=== PATIENT | male | born 1985 | race Caucasian/White ===

== ENCOUNTER 2019-02-20 06:41 | Emergency (ER) | payer OTHER ==
[2019-02-20] MEDS ORDERED: Ibuprofen 600 MG Tab PO ONE (07:12)
[2019-02-20] MEDS ORDERED: Orphenadrine 100 MG Tab.ER PO STA (07:12)
--- NOTE | 2019-02-20 07:18 | EDM.PDOC ---
ED HPI GENERAL MEDICAL PROBLEM - General Chief Complaint: Back Pain or Injury Stated Complaint: BACK PAIN Time Seen by Provider: 02/20/19 06:56 Source of Information: Reports: Patient, RN Notes Reviewed, Other (Friend) History Limitations: Reports: No Limitations - History of Present Illness INITIAL COMMENTS - FREE TEXT/NARRATIVE: The patient states that he got up to use the restroom around 01:00 this morning , and coughed when he went to flush the toilet, producing a sudden onset "pop" in his lower left back, with immediate pain in that area. He describes the pain is sharp in character. It does not radiate anywhere, and is only present if the patient moves. It abates if he remains still. Getting into and out of bed is extremely difficult. Flexing and twisting, particularly to the left, exacerbates the pain. No recent trauma to the area. No urinary symptoms or gross hematuria. No prior similar symptoms, and no prior history of back problems. The patient states that he took 400 mg of ibuprofen around 03:00, without significant relief. The patient does not have a PCP. Treatments CLOSING AGENT: Reports: NSAIDS Left Lower Back Pain Score (Numeric/FACES): 9 - Related Data Allergies Allergy/AdvReac Type Severity Reaction Status Date / Time No Known Allergies Allergy Verified 02/20/19 06:51 Home Meds: Home Meds Orphenadrine [Norflex] 1 tab PO Q12H PRN #20 tab.er 02/20/19 [Rx] Past Medical History - Past Surgical History HEENT Surgical History: Reports: Oral Surgery (wisdom teeth extraction) Social & Family History - Tobacco Use Smoking Status *Q: Current Every Day Smoker Years of Tobacco use: 16 Packs/Tins Daily: 0.5 Packs/Tins Daily Comment: Down from 1 ppd - Caffeine Use Caffeine Use: Reports: Energy Drinks - Alcohol Use Alcohol Use History: Yes Alcohol Use Frequency: Socially - Recreational Drug Use Recreational Drug Use: No - Living Situation & Occupation Living situation: Reports: Single, Alone Occupation: Employed ([employer]) ED ROS GENERAL - Review of Systems Review Of Systems: ROS reveals no pertinent complaints other than HPI. ED EXAM,LOWER BACK PAIN/INJURY - Physical Exam Exam: See Below Exam Limited By: No Limitations General Appearance: Alert, WD/WN, Mild Distress (Appears uncomfortable. Found standing in the exam room.) Eye Exam: Bilateral Eye: EOMI, Normal Inspection Ears: Normal External Exam, Hearing Grossly Normal Nose: Normal Inspection Throat/Mouth: Normal Inspection, Normal Lips, Normal Voice, No Airway Compromise Head: Atraumatic, Normocephalic Neck: Normal Inspection, Full Range of Motion Respiratory/Chest: No Respiratory Distress, Lungs Clear, Normal Breath Sounds, No Accessory Muscle Use Cardiovascular: Normal Peripheral Pulses, Regular Rate, Rhythm, No Edema, No Gallop, No JVD, No Murmur, No Rub GI/Abdominal: Normal Bowel Sounds, Soft, Non-Tender, No Organomegaly, No Distention, No Abnormal Bruit, No Mass (Male) Exam: Deferred Rectal (Males) Exam: Deferred Back Exam: Other (No visible abnormality to the patient's back, such as swelling , erythema, ecchymosis, or abrasion. No tenderness to palpation along the entire thoracic and lumbar vertebral spinous processes. The patient has reproducible tenderness to palpation to his left lumbar paraspinous muscles, but none on the right. The patient is able to flex to approximately 30, and extend to about 5, limited by back pain. The patient is able to tilt bilaterally to only a few degrees, limited by back pain. The patient is able to twist to approximately 5 bilaterally, limited by back pain. Unilateral knee bend is abnormal on the left, but normal on the right. Straight leg raise is symptom-free to about 80, bilaterally, limited only by lower back pain, without radiation down either lower extremity.) Extremities: Normal Inspection, Normal Range of Motion, No Pedal Edema, Normal Capillary Refill Neurological: Alert, No Motor/Sensory Deficits, Oriented x 3 Psychiatric: Normal Affect Skin Exam: Warm, Dry, Intact, Normal Color, No Rash Course - Vital Signs Last Recorded V/S: Last Vital Signs Temp 37.1 C 02/20/19 06:48 Pulse 105 H 02/20/19 06:48 Resp 20 02/20/19 06:48 BP 140/94 H 02/20/19 06:48 Pulse Ox 97 02/20/19 06:48 - Orders/Labs/Meds Meds: Medications Discontinued Medications Generic Name Dose Route Start Last Admin Trade Name Freq PRN Reason Stop Dose Admin Ibuprofen 600 mg 02/20/19 07:12 02/20/19 07:33 Motrin PO 02/20/19 07:13 600 mg ONETIME ONE Administration Orphenadrine Citrate 100 mg 02/20/19 07:12 02/20/19 07:33 Norflex PO 02/20/19 07:13 100 mg ONETIME STA Administration - Re-Assessments/Exams Free Text/Narrative Re-Assessment/Exam: 02/20/19 07:13 The patient's history and physical examination are consistent with the patient' s left back pain being due to a muscle spasm only. His history and physical examination are not consistent with a ureterolith. He has no findings that are concerning for herniated intervertebral disc. Steroids, therefore, are not indicated. I am recommending that the patient continue to take ibuprofen at an appropriate dose, and I will start him on Norflex. I explained that I would like him to stay active, and I will write a note for work, and refer him to the clinic, should his symptoms not improve in the next few days. The patient asked about chiropractic; evidence does in fact show that chiropractic may be of benefit for this particular type of low back pain due to a muscle spasm, not due to a herniated intervertebral disc, therefore I have to recommend that if the patient wants to go to a chiropractor, that that is okay. Departure - Departure Time of Disposition: 07:15 Disposition: Home, Self-Care 01 Condition: Good Clinical Impression: Spasm of back muscles - Discharge Information *PRESCRIPTION DRUG MONITORING PROGRAM REVIEWED*: Not Applicable *COPY OF PRESCRIPTION DRUG MONITORING REPORT IN PATIENT NERY: Not Applicable Prescriptions: Orphenadrine [Norflex] 1 tab PO Q12H PRN #20 tab.er PRN Reason: Muscle Spasm Instructions: Muscle Cramps and Spasms, [id number] Referrals: Yanet Brown PA [Physician Micro Computer Specialist] - Forms: ED Department Discharge, ED Return to Work/School Form Additional Instructions: You were seen in the emergency room for sudden onset lower left back pain. Based on your history and physical examination, your back pain is due to a muscle spasm, not a herniated intervertebral disc. Take [id number] ibuprofen, 2-3 tablets (400-600 mg) every 8 hours, with food, [id number], until your back is feeling better. You have been started on the muscle relaxant Norflex. A prescription for Norflex has [facility], located in the [facility] across the [address] from the hospital. Take one tablet of Norflex every 12 hours, starting this evening, 02/24/2019, as prescribed. As discussed, it is very important that you stay active. Swimming is best, but walking is good, as well. A note for work, limiting your activity, has been provided, through Saturday, 07/2019, however, if you are not feeling ready for full duty by 02/22/2019 , please follow-up with Yanet Brown or one of the other providers in the clinic, on 02/23/2019, for an extension of a work note. As discussed, for back pain due to to a muscle spasm, chiropractic has been shown to be of benefit. If any other problems, please do not hesitate to return to the ER.
== END 2019-02-20 07:35 | disposition home or self-care (01) ==
LOC: JD.ED 06:41
DX: M62.830 Muscle spasm of back (principal); M54.5 Low back pain; F17.210 Nicotine dependence, cigarettes, uncomplicated
CPT/HCPCS: 99283; A9270

== ENCOUNTER 2020-07-20 13:15 | Emergency (ER) | payer OTHER ==
[2020-07-20] MEDS ORDERED: Ketorolac 60 MG/2 ML SDV IM ONE (15:24)
--- NOTE | 2020-07-20 16:07 | EDM.PDOC ---
ED HPI GENERAL MEDICAL PROBLEM - General Chief Complaint: Chest Pain Stated Complaint: CHEST PAIN Time Seen by Provider: 07/20/20 14:18 Source of Information: Reports: Patient, RN Notes Reviewed History Limitations: Reports: No Limitations - History of Present Illness INITIAL COMMENTS - FREE TEXT/NARRATIVE: Patient is a 34-year-old male presenting to the emergency department with complaints of right-sided chest pain since yesterday. He states that he does quite a bit of heavy lifting and exertional activity at work. He was at work yesterday when the symptoms developed. He describes it as sharp pain in the left side of his chest which is worse with movement and deep breathing. He also has some back pain. He took ibuprofen last evening with little relief. He denies any cardiac history. Denies any shortness of breath, nausea or diaphoresis associated with this. Chest Pain Score (Numeric/FACES): 6 - Related Data Allergies Allergy/AdvReac Type Severity Reaction Status Date / Time amoxicillin Allergy Rash Verified 07/20/20 13:46 Home Meds: Home Meds Sertraline [Zoloft] 50 mg PO DAILY 07/20/20 [History] traZODone HCl [Trazodone HCl] 50 mg PO 07/20/20 [History] Past Medical History - Past Health History Medical/Surgical History: Denies Medical/Surgical History Psychiatric History: Reports: Depression - Past Surgical History HEENT Surgical History: Reports: Oral Surgery Social & Family History - Tobacco Use Tobacco Use Status *Q: Current Every Day Tobacco User Years of Tobacco use: 10 Packs/Tins Daily: 0.5 - Caffeine Use Caffeine Use: Reports: Energy Drinks - Living Situation & Occupation Living situation: Reports: Single, Alone Occupation: Employed (Business Area Manager) ED ROS GENERAL - Review of Systems Review Of Systems: See Below Constitutional: Reports: No Symptoms. Denies: Fever, Chills HEENT: Reports: No Symptoms Respiratory: Reports: No Symptoms. Denies: Shortness of Breath, Cough Cardiovascular: Reports: Chest Pain. Denies: Dyspnea on Exertion, Lightheadedness, Syncope Endocrine: Reports: No Symptoms GI/Abdominal: Reports: No Symptoms : Reports: No Symptoms Musculoskeletal: Reports: Other (Chest wall tenderness) Skin: Reports: No Symptoms Neurological: Reports: No Symptoms Psychiatric: Reports: No Symptoms Hematologic/Lymphatic: Reports: No Symptoms Immunologic: Reports: No Symptoms ED EXAM, GENERAL - Physical Exam Exam: See Below General Appearance: Alert, WD/WN, No Apparent Distress Respiratory/Chest: No Respiratory Distress, Lungs Clear, Normal Breath Sounds, No Accessory Muscle Use, Other (Tenderness to palpation of the left chest wall as well as left posterior back.) Cardiovascular: Normal Peripheral Pulses, Regular Rate, Rhythm, No Edema, No Gallop, No JVD, No Murmur, No Rub GI/Abdominal: Normal Bowel Sounds, Soft, Non-Tender, No Organomegaly, No Distention, No Abnormal Bruit, No Mass Neurological: Alert, Oriented, CN II-XII Intact, Normal Cognition, Normal Gait, Normal Reflexes, No Motor/Sensory Deficits Psychiatric: Normal Affect, Normal Mood Skin Exam: Warm, Dry, Intact, Normal Color, No Rash #1 Interpretation EKG Date: 07/20/20 Time: 14:16 Rhythm: NSR Rate (Beats/Min): 75 [place]: Normal P-Wave: Present QRS: Normal ST-T: Normal QT: Normal Comparison: NA - No Prior EKG Course - Vital Signs Last Recorded V/S: Last Vital Signs Temp 98.8 F 07/20/20 16:03 Pulse 77 07/20/20 16:03 Resp 16 07/20/20 16:03 BP 161/95 H 07/20/20 16:03 Pulse Ox 97 07/20/20 16:03 - Orders/Labs/Meds Orders: Active Orders 24 hr Category Date Time Status EKG 12 Lead [EK] Stat Ther 07/20/20 14:06 Ordered Labs: Laboratory Tests 07/20/20 07/20/20 Range/Units 14:24 14:24 WBC 8.76 (4.23-9.07) K/mm3 RBC 4.95 (4.63-6.08) M/mm3 Hgb 15.8 (13.7-17.5) gm/dl Hct 48.7 (40.1-51.0) % MCV 98.4 H (79.0-92.2) fl MCH 31.9 (25.7-32.2) pg MCHC 32.4 (32.2-35.5) g/dl RDW Std Deviation 44.9 H (35.1-43.9) fL Plt Count 206 (163-337) K/mm3 MPV 10.3 (9.4-12.3) fl Neut % (Auto) 67.8 (34.0-67.9) % Lymph % (Auto) 19.9 L (21.8-53.1) % Isabella % (Auto) 10.0 (5.3-12.2) % Eos % (Auto) 1.8 (0.8-7.0) Baso % (Auto) 0.2 (0.1-1.2) % Neut # (Auto) 5.93 H (1.78-5.38) K/mm3 Lymph # (Auto) 1.74 (1.32-3.57) K/mm3 Isabella # (Auto) 0.88 H (0.30-0.82) K/mm3 Eos # (Auto) 0.16 (0.04-0.54) K/mm3 Baso # (Auto) 0.02 (0.01-0.08) K/mm3 Sodium 140 (136-145) mEq/L Potassium 3.9 (3.5-5.1) mEq/L Chloride 105 (98-107) mEq/L Carbon Dioxide 28 (21-32) mEq/L Anion Gap 10.9 (5-15) BUN 15 (7-18) mg/dL Creatinine 1.1 (0.7-1.3) mg/dL Est Cr Clr Drug Dosing 105.82 mL/min Estimated GFR (MDRD) > 60 (>60) mL/min BUN/Creatinine Ratio 13.6 L (14-18) Glucose 97 (74-106) mg/dL Calcium 9.2 (8.5-10.1) mg/dL Total Bilirubin 0.3 (0.2-1.0) mg/dL AST 24 (15-37) U/L ALT 51 (16-63) U/L Alkaline Phosphatase 56 (46-116) U/L Troponin I < 0.017 (0.00-0.056) ng/mL Total Protein 7.2 (6.4-8.2) g/dl Albumin 4.1 (3.4-5.0) g/dl Globulin 3.1 gm/dL Albumin/Globulin Ratio 1.3 (1-2) Meds: Medications Discontinued Medications Generic Name Dose Route Start Last Admin Trade Name Freq PRN Reason Stop Dose Admin Ketorolac Tromethamine 60 mg 07/20/20 15:24 07/20/20 16:04 Toradol IM 07/20/20 15:25 60 mg ONETIME ONE Administration - Re-Assessments/Exams Free Text/Narrative Re-Assessment/Exam: 07/20/20 16:04 Patient is a 34-year-old male presenting to the emergency department with complaints of left-sided chest pain which worsens with movement and deep breathing since yesterday. On exam, he does have significant tenderness of the left-sided chest garcía well as tenderness of his left upper back. Cardiac work- up was completed and found to be grossly unremarkable. His troponin was negative. If his pain was related to cardiac ischemia and has been occurring since yesterday, we would expect to see an increase in his troponin which is not the case. His EKG is normal with no signs of acute ischemia. Chest x-ray is normal. Discussed with patient that his chest pain is musculoskeletal in nature. We will give him a shot of Toradol here in the emergency department. I will send a prescription for Naprosyn to [facility]. Discharge instructions as documented. Departure - Departure Time of Disposition: 16:05 Disposition: Home, Self-Care 01 Condition: Good Clinical Impression: Musculoskeletal chest pain Instructions: Chest Wall Pain, [id number] Referrals: Carol Rico, [employer]ENT [Primary Care Provider] - Forms: ED Department Discharge Additional Instructions: You were seen in the emergency department today for left-sided chest pain which is worse with movement and deep breathing since yesterday. Work-up included blood work, chest x-ray, and EKG of your heart. Your work-up was found to be completely normal. You are not having a cardiac event. As we discussed, the likely cause of your pain is muscle strain. While in the emergency department you received an injection of Toradol for pain. A prescription for Naprosyn has been [facility] to [facility]. Take this medication as prescribed, but did not start taking it until about 9 PM this evening. It may also be beneficial to alternate heat and ice to the area of discomfort. If you should experience any new or worsening symptoms of concern, please not hesitate to return to the emergency department. Sepsis Event Note (ED) - Evaluation Sepsis Screening Result: No Definite Risk - Focused Exam Vital Signs: Vital Signs Temp Pulse Resp BP Pulse Ox 07/20/20 16:03 98.8 F 77 16 161/95 H 97 07/20/20 13:42 98.2 F 87 16 168/95 H 100
--- NOTE | 2020-07-20 16:43 | CR ---
PROCEDURE INFORMATION: Exam: XR Chest, 1 View Exam date and time: 07/20/2020 2:00 PM Age: 34 years old Clinical indication: Chest pain TECHNIQUE: Imaging protocol: XR of the chest Views: 1 view. COMPARISON: No relevant prior studies available. FINDINGS: Lungs: Unremarkable. No consolidation. Pleural space: Unremarkable. No pleural effusion. No pneumothorax. Heart/Mediastinum: Unremarkable. No cardiomegaly. Bones/joints: Unremarkable. IMPRESSION: No acute findings. Thank you for allowing us to participate in the care of your patient. Dictated and Authenticated by: Anny Hardy MD 07/20/2020 3:36 PM Central Time ([place] & [place]) DONTE
== END 2020-07-20 16:15 | disposition home or self-care (01) ==
LOC: JD.ED 13:15
DX: R07.89 Other chest pain (principal); F32.9 Major depressive disorder, single episode, unspecified; F17.210 Nicotine dependence, cigarettes, uncomplicated; Z88.1 Allergy status to other antibiotic agents; Z79.899 Other long term (current) drug therapy
CPT/HCPCS: 36415; 71045; 80053; 84484; 85025; 93005; 96372; 99285; J1885; 93010; 99283

== ENCOUNTER 2024-08-15 12:42 | Emergency (ER) | payer BC, OTHER ==
[2024-08-15 13:53] LABS: BASOPHILS ABSOLUTE AUTO 0.1 K/mm3 (0.0-0.2); BASOPHILS PERCENT AUTO 0.4 % (0.0-1.0); EOSINOPHILS ABSOLUTE AUTO 0.1 K/mm3 (0.0-0.4); EOSINOPHILS PERCENT AUTO 0.9 % (0.0-6.0); HEMATOCRIT 45.2 % (42.0-52.0); HEMOGLOBIN 14.9 gm/dl (14.0-18.0); IMMATURE GRAN ABSOLUTE AUTO 0.13 K/mm3 (0.00-0.05); IMMATURE GRAN PERCENT AUTO 0.9 % (0.0-0.4); LYMPHOCYTES ABSOLUTE AUTO 1.7 K/mm3 (1.0-4.8); LYMPHOCYTES PERCENT AUTO 11.6 % (24.0-44.0); MEAN CORPUSCULAR HEMOGLOBIN 35.8 pg (28.0-32.0); MEAN CORPUSCULAR VOLUME 108.7 fl (83.0-99.0); MONOCYTES ABSOLUTE AUTO 0.9 K/mm3 (0.0-0.8); MONOCYTES PERCENT AUTO 6.3 % (0.0-8.0); NEUTROPHILS ABSOLUTE AUTO 11.9 K/mm3 (1.8-7.7); NEUTROPHILS PERCENT AUTO 79.9 % (41.0-71.0); PLATELET COUNT,PLT 289 K/mm3 (150-400); RED BLOOD CELL COUNT 4.16 M/mm3 (4.52-5.90); WHITE BLOOD CELL COUNT,WBC 14.87 K/mm3 (3.9-11.3)
[2024-08-15] MEDS: Albuterol/Ipratropium 3.0-0.5 MG/3 ML Neb Soln NEB ONE (13:53)
[2024-08-15] MEDS: Ketorolac 30 MG/ML SDV IVPUSH ONE (13:57)
[2024-08-15] MEDS: Sodium Chloride 0.9% 10 ML Syringe FLUSH PRN (13:57)
[2024-08-15 14:10] LABS: ALANINE AMINOTRANSFERASE,ALT 121 U/L (16-63); ALBUMIN 3.6 g/dl (3.4-5.0); ALKALINE PHOSPHATASE 116 U/L (46-116); ANION GAP 11.8 (5-15); ASPARTATE AMNIOTRANSFERASE,AST 91 U/L (15-37); BILIRUBIN TOTAL 0.5 mg/dL (0.2-1.0); BLOOD UREA NITROGEN,BUN 11 mg/dL (7-18); C-REACTIVE PROTEIN 0.68 mg/dL (<0.30); CARBON DIOXIDE,CO2 32 mEq/L (21-32); CHLORIDE,CL 99 mEq/L (98-107); ESTIMATED GFR 100 mL/min (>60); GLUCOSE RANDOM 95 mg/dL (70-99); MAGNESIUM 2.2 mg/dL (1.8-2.4); POTASSIUM,K 3.8 mEq/L (3.5-5.1); PROTEIN TOTAL,TP 7.3 g/dl (6.4-8.2); SODIUM,NA 139 mEq/L (136-145)
== END 2024-08-15 16:15 | disposition home or self-care (01) ==
LOC: JD.ED 12:42
DX: S22.31XA Fracture of one rib, right side, initial encounter for closed fracture (principal); J39.9 Disease of upper respiratory tract, unspecified; B97.89 Other viral agents as the cause of diseases classified elsewhere; J44.9 Chronic obstructive pulmonary disease, unspecified; F17.210 Nicotine dependence, cigarettes, uncomplicated; Z88.0 Allergy status to penicillin; Z79.899 Other long term (current) drug therapy; X58.XXXA Exposure to other specified factors, initial encounter
CPT/HCPCS: 36415; 71045; 80053; 83735; 85025; 86140; 87428; 94640; 96374; 99284; J1885; J3490; J7620-GY